=== PATIENT | male | born 1955 | race Caucasian/White ===

== ENCOUNTER 2021-09-20 08:46 | Day surgery (SDC) | payer BC, MEDICARE ==
[~2021-09-20 08:46] MED LIST: Sodium Chloride 0.9% 1,000 ML IV SCH
[2021-09-20] MEDS ORDERED: fentaNYL 100 MCG/2 ML SDV ONE (09:14)
[2021-09-20] MEDS ORDERED: Midazolam 1 MG/ML 2 ML SDV ONE (09:14)
[2021-09-20] MEDS ORDERED: Propofol 200 MG/20 ML SDV ONE (09:14)
[2021-09-20] MEDS ORDERED: Sodium Chloride 0.9% 1,000 ML IV SCH (09:45)
== END 2021-09-20 11:51 | disposition home or self-care (01) ==
LOC: JP.SDS 08:46
PROVIDERS: ATTEND Surgery
DX: Z12.11 Encounter for screening for malignant neoplasm of colon (principal); E11.9 Type 2 diabetes mellitus without complications
CPT/HCPCS: J2250; J2704; J3010; J7030